=== PATIENT | female | born 1980 | race Caucasian/White ===

== ENCOUNTER 2016-05-13 11:45 | Emergency (ER) | payer OTHER ==
[2016-05-13] MEDS ORDERED: ONDANSETRON DISINTEGRATING 4 MG TAB ONE (11:58)
[2016-05-13] MEDS ORDERED: ONDANSETRON DISINTEGRATING 4 MG TAB PO ONE (12:00)
[2016-05-13] MEDS ORDERED: ONDANSETRON 4 MG/2 ML VIAL IVP ONE (12:22)
[2016-05-13] MEDS ORDERED: HYDROmorphONE/DILAUDID 1 MG/ML SYR IVP ONE ×2 (12:22→14:36)
[2016-05-13 13:03] LABS: % IMMATURE GRANULYOCYTES 0.4 % (0.0-1.1); ABSOLUTE IMMATURE GRANULOCYTES 0.05 10^3/uL (0.00-0.10); ADD DIFF? NO; ADD MORPH? NO; ADD SCAN? NO; ATYPICAL LYMPHOCYTE FLAG 0 (0-99); FRAGMENT RBC FLAG 0 (0-99); HEMATOCRIT 39.9 % (38.0-47.0); HEMOGLOBIN 13.3 g/dL (12.6-16.3); LEFT SHIFT FLG 0 (0-99); LIPEMIA HEMOLYSIS FLAG 80 (0-99); MEAN CELL HEMOGLOBIN 29.6 pg (27.9-34.1); MEAN CELL HEMOGLOBIN CONCENTR. 33.3 g/dL (32.4-36.7); MEAN CELL VOLUME 88.9 fL (81.5-99.8); MEAN PLATELET VOLUME 10.3 fL (8.7-11.7); PLATELET CLUMPS FLAG 10 (0-99); PLATELET COUNT 298 10^3/uL (150-400); RED BLOOD CELL COUNT 4.49 10^6/uL (4.18-5.33); RED CELL DISTRIBUTION WIDTH 16.2 % (11.5-15.2)
[2016-05-13 13:20] LABS: ALANINE AMINOTRANSFERASE 23 IU/L (9-52); ALBUMIN 4.5 g/dL (3.5-5.0); ALKALINE PHOSPHATASE 95 IU/L (38-126); ANION GAP 14 mEq/L (8-16); ASPARTATE AMINOTRANSFERASE 24 IU/L (14-46); BILIRUBIN,TOTAL 0.8 mg/dL (0.1-1.4); BILIRUBIN-CONJUGATED 0.5 mg/dL (0.0-0.5); BILIRUBIN-UNCONJUGATED 0.3 mg/dL (0.0-1.1); CALCIUM 9.2 mg/dL (8.5-10.4); CARBON DIOXIDE 19 mEq/l (22-31); CHLORIDE 111 mEq/L (97-110); CREATININE 0.9 mg/dL (0.6-1.0); GLOMERULAR FILTRATION RATE > 60; GLUCOSE 132 mg/dL (70-100); SODIUM 144 mEq/L (134-144); TOTAL PROTEIN 8.1 g/dL (6.3-8.2)
--- NOTE | 2016-05-13 13:42 | EDPHY ---
H & P Smoking Status: Former smoker Time Seen by Provider: 05/13/16 12:15 HPI/ROS: CHIEF COMPLAINT: Vomiting, diarrhea, abdominal pain HISTORY OF PRESENT ILLNESS: 36-year-old female presents to the emergency department complaining of diffuse abdominal pain and multiple episodes of vomiting and diarrhea since early this morning. Patient states that she was a woken out of sleep at 6:00 a.m. with abdominal pain and began vomiting. She has vomited numerous times. No hematemesis. No blood in her stool. She has had watery diarrhea denies flank pain. Denies urinary symptoms. She is currently on her menstrual cycle and she denies . Denies reported trauma. No known ill contacts. No known food borne illness exposure. REVIEW OF SYSTEMS: Constitutional: No fever, no chills. Eyes: No double or blurry vision. ENT: No sore throat. Respiratory: No cough, no shortness of breath. Cardiac: No chest pain. Gastrointestinal: As above Genitourinary: No dysuria. Musculoskeletal: No neck or back pain. Skin: No rashes. Neurological: No headache. (Brissa Gilmore) Past Medical/Surgical History: GERD, migraine headache, cholecystectomy (Brissa Gilmore) Social History: and lives in [place] (Brissa Gilmore) Physical Exam: General Appearance: Alert, moderate distress. Moaning. 132/93, temperature 36.7 Eyes: Pupils equal and round. Extraocular motions are all intact. ENT: Mouth: Mucous membranes moist. Respiratory: No wheezing, rhonchi, or rales, lungs are clear to auscultation. Cardiovascular: Regular rate and rhythm. Gastrointestinal: Abdomen is soft. She has diffuse tenderness with palpation in the abdomen. There is no masses, rebound or guarding noted. No CVA tenderness bilaterally. Neurological: Alert and oriented x 3, cranial nerves II through XII grossly intact Skin: Warm and dry, no rashes. Musculoskeletal: Nontender to palpate along the cervical, thoracic or lumbar spine. Neck is supple. Extremities: Full range of motion and no peripheral edema. Psychiatric: Patient is oriented X 3, there is no agitation. (Brissa Gilmore) Constitutional: Initial Vital Signs Temperature (C) 36.7 C 05/13/16 11:53 Heart Rate 74 05/13/16 11:53 Respiratory Rate 22 H 05/13/16 11:53 Blood Pressure 132/93 H 05/13/16 11:53 O2 Sat (%) 96 05/13/16 11:53 O2 Delivery Mode Room Air O2 (L/minute) 2 Allergies/Adverse Reactions: penicillin V potassium [From Pen-Vee K] Allergy (Intermediate, Verified 11:56) Hives Sulfa (Sulfonamide Antibiotics) Allergy (Intermediate, Verified 05/13/16 11:56) Hives Home Medications: Medication Instructions Recorded Hydrocodone Bit/Acetaminophen 1 - 2 tab PO Q6PRN PRN #20 tab 04/25/12 [Vicodin 5/500] Levothyroxine [Synthroid 125 mcg 125 mcg PO DAILY06 04/25/12 (RX)] Ranitidine HCl [Zantac 150mg/10ml 150 mg PO BID 04/25/12 oral liquid (RX)] Sertraline HCl [Zoloft] 150 mg PO DAILY 04/25/12 Promethazine HCl [Phenergan 12.5mg 12.5 mg PO Q8 PRN #5 tablet 05/13/16 tab] Medical Decision Making - Diagnostics Imaging: CT imaging of the abdomen and pelvis reveals normal appendix. There are some small fluid-filled loops of bowel consistent with enteritis. No evidence of obstruction. This was reported to me by Dr. Dexter Ovalle. (Brissa Gilmore) ED Course/Re-evaluation: 36-year-old female presents to the emergency department by private vehicle with multiple episodes of vomiting and diarrhea and diffuse abdominal pain. Patient had elevated white blood cell count of 11.9. Chemistries were within normal limits. HCG was negative. I discussed the pros and cons of CT imaging of her abdomen and pelvis including radiation exposure and the patient agrees with CT scan. IV established and the patient was given IV Dilaudid and Zofran. She was also given 12.5 mg of Phenergan IV followed by an additional mg of IV Dilaudid. CT imaging of the abdomen pelvis revealed normal appendix. The patient is drinking water currently. Her nausea is much better. Her pain is improving. She feels comfortable being discharged home. (Brissa Gilmore) I did not see this patient while she was in the emergency department. However her care was discussed with the PA while the patient was in the department. I agree with treatment plan and management (Gautam Johnson) Differential Diagnosis: Including but not limited to gastroenteritis, acute appendicitis, bowel obstruction, urinary tract infection, pyelonephritis (Brissa Gilmore) - Data Points Laboratory Results: Laboratory Results 05/13/16 12:06 05/13/16 12:06 Medications Given: Discontinued Medications Hydromorphone HCl (Dilaudid) 1 mg IVP EDNOW ONE Stop: 05/13/16 12:23 Last Admin: 05/13/16 12:55 Dose: 1 mg Hydromorphone HCl (Dilaudid) 1 mg IVP EDNOW ONE Stop: 05/13/16 14:37 Last Admin: 05/13/16 14:42 Dose: 1 mg Ondansetron HCl (Zofran Odt) 4 mg PO EDNOW ONE Stop: 05/13/16 12:01 Last Admin: 05/13/16 12:01 Dose: 4 mg Ondansetron HCl (Zofran) 4 mg IVP EDNOW ONE Stop: 05/13/16 12:23 Last Admin: 05/13/16 12:55 Dose: 4 mg Promethazine HCl (Phenergan) 12.5 mg IVP ONCE ONE Stop: 05/13/16 14:07 Last Admin: 05/13/16 14:09 Dose: 12.5 mg Departure - Departure Disposition: Home, Routine, Self-Care Clinical Impression: Acute gastroenteritis Condition: Good Instructions: Gastroenteritis (ED) Additional Instructions: Clear liquids and then slowly advance diet as tolerated. Phenergan for nausea as directed. Referrals: JOCELYN KRAUS [Other] - 1-2 days without fail Prescriptions: Promethazine HCl [Phenergan 12.5mg tab] 12.5 mg PO Q8 PRN #5 tablet PRN Reason: Nausea/Vomiting, Use 1st
[2016-05-13] MEDS ORDERED: IOPAMIDOL (ISOVUE-300) 100 ML BTL IV ONE (13:49)
[2016-05-13] MEDS ORDERED: PROMETHAZINE HCL 25 MG/ML INJ ONE (14:02)
[2016-05-13] MEDS ORDERED: PROMETHAZINE HCL 25 MG/ML INJ IVP ONE (14:06)
[2016-05-13 14:56] VITALS: O2SAT 93
[2016-05-13 16:57] VITALS: BP 117/72; PULSE 84; RESP 16; TEMP 98.2
== END 2016-05-13 16:57 | disposition home or self-care (01) ==
DX: K52.9 Noninfective gastroenteritis and colitis, unspecified (principal); Z87.891 Personal history of nicotine dependence
CPT/HCPCS: 96374; J1170; J2405; J2550; Q9967

== ENCOUNTER 2016-05-15 08:00 | Observation (INO) | payer OTHER ==
--- NOTE | 2016-05-15 08:22 | EDPHY ---
H & P Stated Complaint: here saturday for same- abd pain n/v Time Seen by Provider: 05/15/16 08:22 HPI/ROS: CHIEF COMPLAINT: Ongoing abdominal pain, nausea, vomiting and diarrhea HISTORY OF PRESENT ILLNESS: The patient presents to the ED with complaints of ongoing severe upper abdominal pain, nausea, vomiting and diarrhea. The patient was seen in the emergency department 2 days ago. The evaluation at that point time demonstrated a slight leukocytosis however a fairly unremarkable abdominal CT was performed. The patient does have a history of cholecystectomy. The patient also has a history of chronic intermittent migraines. The patient states that she was discharged home with a prescription for Phenergan which is not been helpful in managing her symptoms. The patient continues to complain of ongoing symptoms. The patient denies any fever, melena or hematemesis. REVIEW OF SYSTEMS: A comprehensive 10 point review of systems is otherwise negative aside from elements mentioned in the history of present illness. Source: Patient Exam Limitations: No limitations - Personal History LMP (Females 10-55): Now Current Tetanus/Diphtheria Vaccine: Yes Current Tetanus Diphtheria and Acellular Pertussis (TDAP): Yes - Medical/Surgical History Hx Asthma: No Hx Chronic Respiratory Disease: No Hx Diabetes: No Hx Cardiac Disease: No Hx Renal Disease: No Hx Cirrhosis: No Hx Alcoholism: No Hx HIV/AIDS: No Hx Splenectomy or Spleen Trauma: No Other PMH: pmh- GERD, hypothyroid, migraines. psh- back x2, soumya - Social History Smoking Status: Former smoker - Physical Exam Exam: General Appearance: Alert, moderate discomfort, anxious Eyes: Pupils equal and round no pallor or injection ENT, Mouth: Mucous membranes moist Respiratory: There are no retractions, lungs are clear to auscultation Cardiovascular: Regular rate and rhythm Gastrointestinal: Mild diffuse tenderness throughout, normal bowel sounds Neurological: A&O, normal motor function, normal sensory exam, normal cranial nerves Skin: Warm and dry, no rashes Musculoskeletal: Neck is supple nontender Extremities: symmetrical, full range of motion Constitutional: Initial Vital Signs Temperature (C) 36.6 C 05/15/16 08:01 Heart Rate 77 05/15/16 08:01 Respiratory Rate 20 05/15/16 08:01 Blood Pressure 148/96 H 05/15/16 08:01 O2 Sat (%) 95 05/15/16 08:01 O2 Delivery Mode Room Air Allergies/Adverse Reactions: penicillin V potassium [From Pen-[place] K] Allergy (Intermediate, Verified 11:56) Hives Sulfa (Sulfonamide Antibiotics) Allergy (Intermediate, Verified 05/13/16 11:56) Hives Home Medications: Medication Instructions Recorded Hydrocodone Bit/Acetaminophen 1 - 2 tab PO Q6PRN PRN #20 tab 04/25/12 [Vicodin 5/500] Levothyroxine [Synthroid 125 mcg 125 mcg PO DAILY06 04/25/12 (RX)] Ranitidine HCl [Zantac 150mg/10ml 150 mg PO BID 04/25/12 oral liquid (RX)] Sertraline HCl [Zoloft] 150 mg PO DAILY 04/25/12 Promethazine HCl [Phenergan 12.5mg 12.5 mg PO Q8 PRN #5 tablet 05/13/16 tab] Medical Decision Making ED Course/Re-evaluation: I reviewed the patient's past medical record including the laboratory testing and results of the CT scan performed 2 days ago. The patient had an IV established. She received IV Ativan and Zofran. She received 2 L of normal saline. Patient continued to have ongoing generalized abdominal pain and nausea. She received IV narcotics. Patient was re-evaluated again by myself at 12:00 p.m.. She continues to complain of ongoing abdominal pain and nausea. She is unable to tolerate even small sips of fluid. At this point time she has no tenderness to palpation in her right lower quadrant. She has a prior history of cholecystectomy. She is having diarrhea and nothing to suggest an obstruction. The patient will be admitted to the hospitalist service in the setting of her ongoing pain, nausea and inability to tolerate p.o. fluids. Consultation was made with Dr. Doni Howell who will admit the patient. Differential Diagnosis: Differential diagnosis considered includes gastroenteritis, perforation, obstruction, pancreatitis, choledocholithiasis - Data Points Laboratory Results: Laboratory Results 05/15/16 08:35 05/15/16 08:35 05/15/16 05/15/16 05/15/16 08:35 08:35 08:35 WBC 12.34 10^3/uL H 10^3/uL (3.80-9.50) RBC 4.90 10^6/uL 10^6/uL (4.18-5.33) Hgb 14.3 g/dL g/dL (12.6-16.3) Hct 43.8 % % (38.0-47.0) MCV 89.4 fL fL (81.5-99.8) MCH 29.2 pg pg (27.9-34.1) MCHC 32.6 g/dL g/dL (32.4-36.7) RDW 16.8 % H % (11.5-15.2) Plt Count 323 10^3/uL 10^3/uL (150-400) MPV 10.1 fL fL (8.7-11.7) Neut % (Auto) 75.9 % H % (39.3-74.2) Lymph % (Auto) 16.9 % % (15.0-45.0) Frederick % (Auto) 4.8 % % (4.5-13.0) Eos % (Auto) 1.3 % % (0.6-7.6) Baso % (Auto) 0.6 % % (0.3-1.7) Nucleat RBC Rel Count 0.0 % % (0.0-0.2) Absolute Neuts (auto) 9.37 10^3/uL H 10^3/uL (1.70-6.50) Absolute Lymphs (auto) 2.09 10^3/uL 10^3/uL (1.00-3.00) Absolute Monos (auto) 0.59 10^3/uL 10^3/uL (0.30-0.80) Absolute Eos (auto) 0.16 10^3/uL 10^3/uL (0.03-0.40) Absolute Basos (auto) 0.07 10^3/uL 10^3/uL (0.02-0.10) Absolute Nucleated RBC 0.00 10^3/uL 10^3/uL (0-0.01) Immature Gran % 0.5 % % (0.0-1.1) Immature Gran # 0.06 10^3/uL 10^3/uL (0.00-0.10) Sodium 145 mEq/L H mEq/L (134-144) Potassium 4.5 mEq/L mEq/L (3.5-5.2) Chloride 114 mEq/L H mEq/L (97-110) Carbon Dioxide 17 mEq/l L mEq/l (22-31) Anion Gap 14 mEq/L mEq/L (8-16) BUN 12 mg/dL mg/dL (7-23) Creatinine 1.1 mg/dL H mg/dL (0.6-1.0) Estimated GFR 56 Glucose 101 mg/dL H mg/dL (70-100) Calcium 9.1 mg/dL mg/dL (8.5-10.4) Total Bilirubin 0.7 mg/dL mg/dL (0.1-1.4) Conjugated Bilirubin 0.4 mg/dL mg/dL (0.0-0.5) Unconjugated Bilirubin 0.3 mg/dL mg/dL (0.0-1.1) AST 26 IU/L IU/L (14-46) ALT 22 IU/L IU/L (9-52) Alkaline Phosphatase 101 IU/L IU/L (38-126) Total Protein 8.5 g/dL H g/dL (6.3-8.2) Albumin 4.6 g/dL g/dL (3.5-5.0) Lipase 70.0 IU/L IU/L (23-300) Beta HCG, Qual NEGATIVE Medications Given: Discontinued Medications Hydromorphone HCl (Dilaudid) 1 mg IVP EDNOW ONE Stop: 05/15/16 09:32 Last Admin: 05/15/16 09:32 Dose: 1 mg Sodium Chloride (Ns) 1,000 mls @ 0 mls/hr IV ONCE ONE PRN Reason: Wide Open Stop: 05/15/16 08:30 Last Admin: 05/15/16 08:30 Dose: 1,000 mls Sodium Chloride (Ns) 1,000 mls @ 0 mls/hr IV ONCE ONE PRN Reason: Wide Open Stop: 05/15/16 08:30 Last Admin: 05/15/16 10:00 Dose: 1,000 mls Lorazepam (Ativan Injection) 1 mg IVP EDNOW ONE Stop: 05/15/16 08:30 Last Admin: 05/15/16 09:03 Dose: 1 mg Ondansetron HCl (Zofran) 4 mg IVP EDNOW ONE Stop: 05/15/16 08:30 Last Admin: 05/15/16 08:35 Dose: 4 mg Departure - Departure Disposition: [facility] Inpatient Acute Clinical Impression: Abdominal pain, Dehydration, Acute gastroenteritis Condition: Fair
[2016-05-15] MEDS ORDERED: NS 1,000 ML IV ONE ×2 (08:29)
[2016-05-15] MEDS ORDERED: ONDANSETRON 4 MG/2 ML VIAL IVP ONE (08:29)
[2016-05-15] MEDS ORDERED: LORazepam 2 MG/ML INJ IVP ONE (08:29)
[2016-05-15 08:45] LABS: % IMMATURE GRANULYOCYTES 0.5 % (0.0-1.1); ABSOLUTE IMMATURE GRANULOCYTES 0.06 10^3/uL (0.00-0.10); ADD DIFF? NO; ADD MORPH? NO; ADD SCAN? NO; ATYPICAL LYMPHOCYTE FLAG 0 (0-99); FRAGMENT RBC FLAG 0 (0-99); HEMATOCRIT 43.8 % (38.0-47.0); HEMOGLOBIN 14.3 g/dL (12.6-16.3); LEFT SHIFT FLG 0 (0-99); LIPEMIA HEMOLYSIS FLAG 80 (0-99); MEAN CELL HEMOGLOBIN 29.2 pg (27.9-34.1); MEAN CELL HEMOGLOBIN CONCENTR. 32.6 g/dL (32.4-36.7); MEAN CELL VOLUME 89.4 fL (81.5-99.8); MEAN PLATELET VOLUME 10.1 fL (8.7-11.7); PLATELET CLUMPS FLAG 0 (0-99); PLATELET COUNT 323 10^3/uL (150-400); RED CELL DISTRIBUTION WIDTH 16.8 % (11.5-15.2)
[2016-05-15] MEDS ORDERED: HYDROmorphONE/DILAUDID 1 MG/ML SYR ONE (09:25)
[2016-05-15] MEDS ORDERED: HYDROmorphONE/DILAUDID 1 MG/ML SYR IVP ONE (09:31)
[2016-05-15 09:45] LABS: ALANINE AMINOTRANSFERASE 22 IU/L (9-52); ALBUMIN 4.6 g/dL (3.5-5.0); ALKALINE PHOSPHATASE 101 IU/L (38-126); ANION GAP 14 mEq/L (8-16); ASPARTATE AMINOTRANSFERASE 26 IU/L (14-46); BILIRUBIN,TOTAL 0.7 mg/dL (0.1-1.4); BILIRUBIN-CONJUGATED 0.4 mg/dL (0.0-0.5); BILIRUBIN-UNCONJUGATED 0.3 mg/dL (0.0-1.1); CALCIUM 9.1 mg/dL (8.5-10.4); CARBON DIOXIDE 17 mEq/l (22-31); CHLORIDE 114 mEq/L (97-110); CREATININE 1.1 mg/dL (0.6-1.0); GLOMERULAR FILTRATION RATE 56; GLUCOSE 101 mg/dL (70-100); POTASSIUM 4.5 mEq/L (3.5-5.2); SODIUM 145 mEq/L (134-144); TOTAL PROTEIN 8.5 g/dL (6.3-8.2)
[2016-05-15] MEDS: PROMETHAZINE HCL 25 MG/ML INJ IVP PRN ×2 (13:52→19:51)
[2016-05-15] MEDS ORDERED: ONDANSETRON DISINTEGRATING 4 MG TAB PO PRN (15:51)
[2016-05-15] MEDS ORDERED: ONDANSETRON 4 MG/2 ML VIAL IVP PRN (15:51)
[2016-05-15] MEDS ORDERED: ACETAMINOPHEN 325 MG TAB PO PRN (15:51)
[2016-05-15] MEDS ORDERED: PROMETHAZINE HCL 12.5 MG PO PRN (15:52)
[2016-05-15] MEDS ORDERED: PROMETHAZINE HCL 25 MG TAB PO PRN (16:11)
[2016-05-15] MEDS: NS 1,000 ML IV SCH (16:19)
--- NOTE | 2016-05-15 16:24 | GHP ---
[f rep st] HISTORY AND PHYSICAL DATE OF ADMISSION: 05/15/2016 The patient is a 36-year-old female, with a history of migraines, and what sounds like possible abdo mary migraines, who presents with abdominal pain for a couple of days accompanied by nausea and vom iting. She has not had a fever, no one around her has been sick, she has no suspicious food ingesti on suggestive of food poisoning. She was seen in the emergency department 2 days ago, and at that t laureen she had an abdominal CAT scan performed that showed a normal appendix with no findings for a cli nical diagnosis of appendicitis, possible mild enteritis, otherwise felt to be grossly unremarkable. She describes these symptoms as similar to her previous episodes of what she thinks may be abdominal migraines, in that they occur in conjunction with her migraine headaches. She now gets prophylacti c therapy for migraines as well as some Botox injections, and the frequency of her headaches have de creased. She has had no hematemesis, coffee-ground emesis, melena, or bright red blood per rectum. She has no family or personal history of inflammatory bowel disease. REVIEW OF SYSTEMS: A complete 10-point review of systems is conducted and negative, except as noted in HPI. PAST MEDICAL HISTORY: 1. Hypothyroidism. 2. Migraines. 3. Possible abdominal migraines. ALLERGIES: To penicillin and sulfa. HOME MEDICATIONS: Zanaflex, Topamax, Prozac, Zantac, Phenergan, Synthroid. SOCIAL HISTORY: No tobacco, no alcohol, lives in [place], works at a desk job. FAMILY HISTORY: Negative for inflammatory bowel disease. PHYSICAL EXAMINATION: VITAL SIGNS: Temperature 37, blood pressure 115/83, pulse 70, breathing 20 t imes a minute, 95% on room air. GENERAL: Uncomfortable, but otherwise in no acute distress. HEENT : Sclerae anicteric, oropharynx clear, mucous membranes moist. NECK: Supple, without lymphadenopa thy, JVD. LUNGS: Clear to auscultation bilaterally. HEART: S1, S2 without murmurs. ABDOMEN: So ft, nontender, nondistended. LOWER EXTREMITIES: Without edema. Calves nontender. SKIN: Without rash. NEUROLOGIC: Exam is nonfocal. LABORATORY DATA: Sodium 145, potassium 114, chloride 17 , BUN 12, creatinine 1.1. Anion gap is normal. Glucose 101, LFTs normal, lipase normal, beta HCG negative. White count is 12.3, he matocrit 44, platelets are 323,000. I discussed the case with Dr. Davonte Wright. I reviewed the CT im ages and interpreted the images myself from a previous hospital stay. ASSESSMENT AND PLAN: A 36-year-old female with viral gastroenteritis versus abdominal migraines. 1. Abdominal pain. I think this is secondary to cramping, although she describes it as more consta nt. We will treat this with IV pain medicines, IV antiemetics overnight, and reevaluate in the morn ing. We have a low risk for Clostridium difficile given her concomitant nausea and absence of leuko cytosis. 2. Hypothyroidism, continue her on levothyroxine. 3. Migraines, continue her Topamax. 4. Depression, continue her Prozac. 5. Disposition, observation status. 6. Prophylaxis. Patient is ambulatory, if she is in the hospital for longer than 24 hours then pos sibly pharmacologic prophylaxis as indicated. /[id number]/MODL
[2016-05-15] MEDS ORDERED: MAALOX/LIDO/HYOSC GI COCKTAIL 55 ML BOTTLE PO ONE (19:36)
[2016-05-15] MEDS ORDERED: oxyCODONE IR 5 MG TAB PO PRN (19:36)
[2016-05-15] MEDS ORDERED: TOPIRAMATE 100 MG PO SCH (21:00)
[2016-05-15] MEDS ORDERED: FLUoxetine 20 MG CAP PO SCH (21:00)
[2016-05-15] MEDS ORDERED: RANITIDINE HCL 150 MG/10 ML UDCUP PO SCH (21:00)
[2016-05-15] MEDS: FAMOTIDINE 20 MG TAB PO SCH (21:18)
[2016-05-15] MEDS: TOPIRAMATE 100 MG TAB PO SCH (21:18)
[2016-05-15 22:05] VITALS: TEMP 98.2
[2016-05-16] MEDS: NS 1,000 ML IV SCH ×2 (00:56→07:32)
[2016-05-16] MEDS ORDERED: LEVOTHYROXINE 200 MCG TAB PO SCH (06:00)
[2016-05-16] MEDS: FAMOTIDINE 20 MG TAB PO SCH (07:22)
[2016-05-16] MEDS: TOPIRAMATE 100 MG TAB PO SCH (07:23)
[2016-05-16 07:25] VITALS: BP 118/78; PULSE 64; RESP 16
[2016-05-16 07:41] VITALS: O2SAT 94
--- NOTE | 2016-05-16 13:22 | HOSPPROG ---
Hospitalist Progress Note Assessment/Plan: 36 yo F w likely abdominal migraine now improved home today see dc summary Subjective: better Objective: Vital Signs Temp Pulse Resp BP Pulse Ox 36.8 C 64 16 118/78 94 05/16/16 07:36 05/16/16 07:36 05/16/16 07:36 05/16/16 07:36 05/16/16 07:36 05/15/16 05/16/16 05/17/16 05:59 05:59 05:59 Intake Total 4321 Balance 4321 - Physical Exam Constitutional: no apparent distress Eyes: PERRL, anicteric sclera Ears, Nose, Mouth, Throat: moist mucous membranes, hearing normal Cardiovascular: regular rate and rhythym, no murmur, rub, or gallop Respiratory: no respiratory distress, no rales or rhonchi Gastrointestinal: normoactive bowel sounds, soft, non-tender abdomen Genitourinary: No bernardo in urethra Skin: warm, normal color Musculoskeletal: full muscle strength, no muscle tenderness Neurologic: AAOx3, sensation intact bilaterally, weakness Psychiatric: interacting appropriately Lymph, Heme, Immunologic: no cervical LAD ICD10 Worksheet Patient Problems: Problems Problem Status Onset Abdominal pain Acute Acute gastroenteritis Acute Dehydration Acute
--- NOTE | 2016-05-16 14:07 | GDS ---
HISTORY OF PRESENT ILLNESS: The patient is a pleasant 36-year-old female with a history of migraine s and suspected abdominal migraines, who has presented to the ER 2 times in the last couple of days with abdominal pain. HOSPITAL COURSE: She had a CAT scan and a negative HCG on . The CAT scan was unremarkable, inc luding no evidence of appendicitis. She had nausea, vomiting, diarrhea. No fever, no chills. No e vidence of gastrointestinal bleeding including a stable hematocrit. She did have an anion gap metab olic acidosis that was stable. She was given conservative therapy with IV antiemetics and pain medicines. On the day of the , the patient was sitting up, eating, feeling better and anxious for discharge. DISPOSITION: She was therefore discharged home with no prescriptions end dictation. /[id number]/MODL
== END 2016-05-16 14:30 | disposition home or self-care (01) ==
LOC: F1N 12:32
PROVIDERS: ADMIT Internal Medicine; ATTEND Internal Medicine
DX: R10.10 Upper abdominal pain, unspecified (principal); R11.2 Nausea with vomiting, unspecified; R19.7 Diarrhea, unspecified; E86.0 Dehydration; G43.909 Migraine, unspecified, not intractable, without status migrainosus; E03.9 Hypothyroidism, unspecified; F32.9 Major depressive disorder, single episode, unspecified
CPT/HCPCS: 96361; 96374; 96375; 99285; G0378; J1170; J2405; J2550

== ENCOUNTER 2016-09-17 11:14 | Emergency (ER) | payer OTHER ==
--- NOTE | 2016-09-17 11:23 | EDPHY ---
H & P Stated Complaint: Abdominal pain, nausea and vomiting since 5AM. Time Seen by Provider: 09/17/16 11:22 - Personal History LMP (Females 10-55): 1-7 Days Ago Current Tetanus Diphtheria and Acellular Pertussis (TDAP): Yes - Medical/Surgical History Hx Asthma: No Hx Chronic Respiratory Disease: No Hx Diabetes: No Hx Cardiac Disease: No Hx Renal Disease: No Hx Cirrhosis: No Hx Alcoholism: No Hx HIV/AIDS: No Hx Splenectomy or Spleen Trauma: No Other PMH: pmh- GERD, hypothyroid, migraines. psh- back x2, soumya - Social History Smoking Status: Former smoker Constitutional: Initial Vital Signs Temperature (C) 36.9 C 09/17/16 11:15 Heart Rate 77 09/17/16 11:15 Respiratory Rate 20 09/17/16 11:15 Blood Pressure 154/98 H 09/17/16 11:15 O2 Sat (%) 96 09/17/16 11:15 O2 Delivery Mode Room Air Allergies/Adverse Reactions: penicillin V potassium [From Pen-Vee K] Allergy (Intermediate, Verified 11:56) Hives Sulfa (Sulfonamide Antibiotics) Allergy (Intermediate, Verified 05/13/16 11:56) Hives Home Medications: Medication Instructions Recorded Ranitidine HCl [Zantac] 150 mg PO BID 04/25/12 Promethazine HCl [Phenergan 12.5mg 12.5 mg PO Q8 PRN #5 tablet 05/13/16 tab] FLUoxetine [Prozac 20 MG (*)] 40 mg PO HS 05/15/16 Levothyroxine [Synthroid 200 mcg 200 mcg PO DAILY06 05/15/16 (*)] Topiramate [Topamax] 100 mg PO BID 05/15/16 Medical Decision Making ED Course/Re-evaluation: CHIEF COMPLAINT: Abdominal migraine, vomiting HISTORY OF PRESENT ILLNESS: The patient is a 36 y/o female complaining of severe recurrent vomiting and abdominal pain onset this morning. She has had the same symptoms previously with extensive workups and her specialist has been treating her for abdominal migraines. Her last severe episode was in May and required ED treatment. Usually Phenergan, Dilaudid, and IV fluids alleviate her symptoms. She denies fever, diarrhea, or other infectious symptoms. She denies other pertinent medical history. REVIEW OF SYSTEMS: A 10 point review of systems was performed and is negative with the exception of the elements mentioned in the history of present illness. PHYSICAL EXAM: HR, BP, O2 Sat, RR. Temp noted General Appearance: Alert, well hydrated, appropriate, and uncomfortable- appearing, actively retching. Head: Atraumatic without scalp tenderness or obvious injury Eyes: Pupils equal, round, reactive to light and accommodation, EOMI, no trauma , no injection. Nose: Atraumatic, no rhinorrhea, clear. Throat: Mucus membranes moist. Neck: Supple, nontender, no lymphadenopathy. Respiratory: No retractions, no distress, no wheezes, and no accessory muscle use. Lungs are clear to auscultation bilaterally. Cardiovascular: Regular rate and rhythm, no murmurs, rubs, or gallops. Good capillary refill all extremities. Gastrointestinal: Abdomen is soft, diffusely tender, non-distended, no masses, no rebound, no guarding, no peritoneal signs. Musculoskeletal: Normal active ROM of all extremities, atraumatic. Neurological: Alert, appropriate, and interactive. Nonfocal neuro exam Skin: No rashes, good turgor, no nodules on palpation. Past medical history: Abdominal migraines, obesity Past surgical history: denies Family history: noncontributory Social history: Lives in [place]. DIFFERENTIAL DIAGNOSIS: The differential diagnosis for the patient's abdominal pain and vomiting included but was not limited to abdominal migraine, ovarian cyst, pelvic inflammatory disease, ovarian torsion, urinary tract infection, ectopic , cholecystitis, and appendicitis. MEDICAL DECISION MAKING: This is a 36 y/o female with a history of abdominal migraines who presents with a few-hour history of diffuse abdominal pain and vomiting that is exactly the same as previous abdominal migraines. She has had extensive workups for this, so we will not re-image her today. Plan for symptomatic treatment only with IV, 30mg IV Toradol, 10mg IV Ketamine, 1mg IV Dilaudid, 25mg IV Phenergan, and 2L IV NS. Reassessed patient. She feels improved and ready to go home. She is tolerating PO fluids. She will be discharged with standard vomiting and abdominal pain return precautions and recommendation to follow up with her specialist. She is comfortable with this plan. - Data Points Medications Given: Discontinued Medications Hydromorphone HCl (Dilaudid) 1 mg IVP EDNOW ONE Stop: 09/17/16 11:48 Last Admin: 09/17/16 12:12 Dose: 1 mg Sodium Chloride (Ns) 1,000 mls @ 0 mls/hr IV ONCE ONE; Wide Open PRN Reason: Protocol Stop: 09/17/16 11:49 Last Admin: 09/17/16 12:13 Dose: 1,000 mls Sodium Chloride (Ns) 1,000 mls @ 0 mls/hr IV ONCE ONE; Wide Open PRN Reason: Protocol Stop: 09/17/16 11:49 Last Admin: 09/17/16 12:13 Dose: 1,000 mls Ketamine HCl (Ketamine) 10 mg IVP EDNOW ONE Stop: 09/17/16 11:48 Last Admin: 09/17/16 12:13 Dose: 10 mg Ketorolac Tromethamine (Toradol) 30 mg IVP EDNOW ONE Stop: 09/17/16 11:48 Last Admin: 09/17/16 12:13 Dose: 30 mg Promethazine HCl (Phenergan) 25 mg IVP EDNOW ONE Stop: 09/17/16 11:48 Last Admin: 09/17/16 12:13 Dose: 25 mg Departure - Departure Disposition: Home, Routine, Self-Care Clinical Impression: Abdominal migraine Qualifiers: Intractability: not intractable Qualified Code(s): G43.D0 - Abdominal migraine , not intractable Condition: Good Instructions: Chronic Abdominal Pain (ED) Additional Instructions: Follow up with your migraine specialist for ongoing symptoms. Referrals: Blanca Santos DO [Primary Care Provider] - As per Instructions Report Scribed for: Estuardo Guaman Report Scribed by: Komal Abel Date of Report: 09/17/16 Time of Report: 12:48
[2016-09-17] MEDS ORDERED: HYDROmorphONE/DILAUDID 1 MG/ML SYR IVP ONE (11:47)
[2016-09-17] MEDS ORDERED: KETAMINE 100 MG/10 ML SYR IVP ONE (11:47)
[2016-09-17] MEDS ORDERED: KETOROLAC 30 MG/1 ML SDV IVP ONE (11:47)
[2016-09-17] MEDS ORDERED: PROMETHAZINE HCL 25 MG/ML INJ IVP ONE (11:47)
[2016-09-17] MEDS ORDERED: NS 1,000 ML IV ONE ×2 (11:48)
[2016-09-17 13:48] VITALS: RESP 18
[2016-09-17 14:17] VITALS: BP 109/60; PULSE 65; TEMP 98.4; O2SAT 95
== END 2016-09-17 14:34 | disposition home or self-care (01) ==
DX: G43.D0 Abdominal migraine, not intractable (principal); E86.9 Volume depletion, unspecified; Z87.891 Personal history of nicotine dependence
CPT/HCPCS: 96374; J1170; J1885; J2550

== ENCOUNTER 2016-09-19 20:09 | Emergency (ER) | payer OTHER ==
[2016-09-19] MEDS ORDERED: METOCLOPRAMIDE 10 MG/2 ML VIAL IVP ONE (20:39)
[2016-09-19] MEDS ORDERED: KETOROLAC 30 MG/1 ML SDV IVP ONE (20:39)
[2016-09-19] MEDS ORDERED: KETAMINE 100 MG/10 ML SYR IVP ONE (20:39)
--- NOTE | 2016-09-19 20:39 | EDPHY ---
H & P Stated Complaint: abd pain Time Seen by Provider: 09/19/16 20:21 HPI/ROS: CHIEF COMPLAINT: Abdominal pain since this morning HISTORY OF PRESENT ILLNESS: 36-year-old female history of abdominal migraines seen emergency department for similar in the past most recently 2 days ago for same complaint which point she was given multiple medications including ketamine resulting in relief of symptoms. States that she woke this morning with return of her pain including nausea, vomiting. Bowel movements normal. Feels like her usual abdominal migraine symptoms. Denies: Trauma, urinary abnormality, back or flank pain PRIMARY CARE PROVIDER: REVIEW OF SYSTEMS: A ten point review of systems was performed and is negative with the exception of the items mentioned in the HPI PAST MEDICAL & SURGICAL HISTORY: Abdominal migraine SOCIAL HISTORY: Nonsmoker PHYSICAL EXAM (Prior to examination, patient consented to physical exam, hands were washed and my usual and customary physical exam procedures followed) 1) GENERAL: Well-developed, well-nourished, alert and oriented. Appears uncomfortable 2) HEAD: Normocephalic, atraumatic 3) HEENT: Pupils equal, round, reactive to light bilaterally. Sclera anicteric. 4) NECK: Full range of motion, no meningeal signs. 5) LUNGS: Clear auscultation bilaterally, no wheezes, no rhonchi, no retractions. 6) HEART: Regular rate and rhythm, no murmur, no heave, no gallop. 7) ABDOMEN: guarding abdomen, diffusely tender to palpation with light touch in all quadrants. , 8) MUSCULOSKELETAL: Moving all extremities, no focal areas of tenderness, no obvious trauma. No peripheral edema or discoloration. 9) BACK: No CVA tenderness 10) SKIN: No rash, no petechiae. 11) Psychiatric: Patient is oriented X 3, there is no agitation. DIFFERENTIAL DIAGNOSIS: My differential diagnosis includes, but is not limited to, acute appendicitis, acute cholecystitis, bowel obstruction, acute pancreatitis, ovarian torsion, ectopic , abdominal migraine exacerbation, gastritis and urinary tract infection. The patient understands that this diagnosis is provisional and can never be 100% accurate. This is a partial list of diagnoses considered. These considerations are based on history , physical exam, past history and reassessment. Source: Police - Personal History LMP (Females 10-55): 1-7 Days Ago Current Tetanus/Diphtheria Vaccine: No - Medical/Surgical History Hx Asthma: No Hx Chronic Respiratory Disease: No Hx Diabetes: No Hx Cardiac Disease: No Hx Renal Disease: No Hx Cirrhosis: No Hx Alcoholism: No Hx HIV/AIDS: No Hx Splenectomy or Spleen Trauma: No Other PMH: pmh- GERD, hypothyroid, migraines. psh- back x2, soumya - Social History Smoking Status: Former smoker Constitutional: Initial Vital Signs Temperature (C) 37.2 C 09/19/16 20:14 Heart Rate 76 09/19/16 20:14 Respiratory Rate 17 09/19/16 20:14 Blood Pressure 140/97 H 09/19/16 20:14 O2 Sat (%) 93 09/19/16 20:14 O2 Delivery Mode Room Air Allergies/Adverse Reactions: penicillin V potassium [From Pen-Vee K] Allergy (Intermediate, Verified 11:56) Hives Sulfa (Sulfonamide Antibiotics) Allergy (Intermediate, Verified 05/13/16 11:56) Hives Home Medications: Medication Instructions Recorded Ranitidine HCl [Zantac] 150 mg PO BID 04/25/12 Promethazine HCl [Phenergan 12.5mg 12.5 mg PO Q8 PRN #5 tablet 05/13/16 tab] FLUoxetine [Prozac 20 MG (*)] 40 mg PO HS 05/15/16 Levothyroxine [Synthroid 200 mcg 200 mcg PO DAILY06 05/15/16 (*)] Topiramate [Topamax] 100 mg PO BID 05/15/16 Medical Decision Making ED Course/Re-evaluation: 840 p.m.: Old medical records reviewed by myself. 11:13 p.m.: Re-evaluation after her Reglan, ketamine, Toradol. She is feeling improvement in symptoms. Currently asymptomatic. She would like to attempt oral fluid challenge. I re-examined her abdomen at this time which is soft no guarding no rebound. At this time I think that acute surgical abdominal pathology, acute appendicitis, bowel obstruction, mesenteric ischemia, acute cholecystitis, is less than likely in this patient. I do not think that imaging studies indicated at this time. If she is able to complete her oral fluid challenge she would like to be discharged. I think this is a reasonable decision. 11:30 p.m.: Patient has tolerate oral intake. She would like to be discharged home. Re-examined her abdomen which is soft no guarding no rebound. Asymptomatic. 11:45 p.m.: Called to the patient's bedside as she is complaining of new onset diffuse abdominal pain. Midnight: Care turned over to Dr. Rafa Smith at this time. Patient has been given further dose of analgesia will be observed for a period of time and if she is feeling improvement plan will be discharge. - Data Points Laboratory Results: Laboratory Results 09/19/16 21:50 09/19/16 21:50 Medications Given: Discontinued Medications Hydromorphone HCl (Dilaudid) 1 mg IVP EDNOW ONE Stop: 09/19/16 23:47 Last Admin: 09/19/16 23:51 Dose: 1 mg Sodium Chloride (Ns) 1,000 mls @ 0 mls/hr IV ONCE ONE PRN Reason: Wide Open Stop: 09/19/16 20:41 Last Admin: 09/19/16 21:35 Dose: 1,000 mls Ketamine HCl (Ketamine) 20 mg 0.2 mg/kg (20 mg) IVP EDNOW ONE Stop: 09/19/16 20:40 Last Admin: 09/19/16 21:35 Dose: 20 mg Ketorolac Tromethamine (Toradol) 30 mg IVP EDNOW ONE Stop: 09/19/16 20:40 Last Admin: 09/19/16 21:35 Dose: 30 mg Metoclopramide HCl (Reglan Injection) 10 mg IVP EDNOW ONE Stop: 09/19/16 20:40 Last Admin: 09/19/16 21:35 Dose: 10 mg Ondansetron HCl (Zofran) 4 mg IVP EDNOW ONE Stop: 09/19/16 23:47 Last Admin: 09/19/16 23:52 Dose: 4 mg Departure - Departure Disposition: Home, Routine, Self-Care Clinical Impression: History of abdominal migraine Abdominal pain Qualifiers: Abdominal location: generalized Qualified Code(s): R10.84 - Generalized abdominal pain Condition: Good Instructions: Acute Abdominal Pain (ED) Additional Instructions: Seek immediate medical attention if you develop new or worsening symptoms, if you develop fevers, chills, inability to tolerate oral intake or any other symptoms that concerns you. Referrals: Blanca Santos, DO [Primary Care Provider] - 1 day without fail Stand Alone Forms: Work Excuse
[2016-09-19] MEDS ORDERED: NS 1,000 ML IV ONE (20:40)
[2016-09-19 21:36] VITALS: O2SAT 100
[2016-09-19 21:57] LABS: % IMMATURE GRANULYOCYTES 0.5 % (0.0-1.1); ABSOLUTE IMMATURE GRANULOCYTES 0.08 10^3/uL (0.00-0.10); ADD DIFF? NO; ADD MORPH? NO; ADD SCAN? NO; ATYPICAL LYMPHOCYTE FLAG 0 (0-99); FRAGMENT RBC FLAG 0 (0-99); HEMATOCRIT 38.6 % (38.0-47.0); LEFT SHIFT FLG 0 (0-99); LIPEMIA HEMOLYSIS FLAG 80 (0-99); MEAN CELL HEMOGLOBIN 29.3 pg (27.9-34.1); MEAN CELL HEMOGLOBIN CONCENTR. 33.7 g/dL (32.4-36.7); MEAN CELL VOLUME 87.1 fL (81.5-99.8); MEAN PLATELET VOLUME 9.9 fL (8.7-11.7); PLATELET CLUMPS FLAG 0 (0-99); PLATELET COUNT 288 10^3/uL (150-400); RED BLOOD CELL COUNT 4.43 10^6/uL (4.18-5.33); RED CELL DISTRIBUTION WIDTH 14.3 % (11.5-15.2)
[2016-09-19 22:06] LABS: ALANINE AMINOTRANSFERASE 27 IU/L (9-52); ALKALINE PHOSPHATASE 99 IU/L (38-126); ANION GAP 12 mEq/L (8-16); ASPARTATE AMINOTRANSFERASE 16 IU/L (14-46); BILIRUBIN,TOTAL 0.7 mg/dL (0.1-1.4); BILIRUBIN-CONJUGATED 0.4 mg/dL (0.0-0.5); BILIRUBIN-UNCONJUGATED 0.3 mg/dL (0.0-1.1); CARBON DIOXIDE 17 mEq/l (22-31); CHLORIDE 110 mEq/L (97-110); GLOMERULAR FILTRATION RATE > 60; GLUCOSE 92 mg/dL (70-100); POTASSIUM 3.5 mEq/L (3.5-5.2); SODIUM 139 mEq/L (134-144); TOTAL PROTEIN 7.1 g/dL (6.3-8.2)
[2016-09-19 23:26] LABS: COLOR YELLOW; LEUKOCYTE ESTERASE,URINE 2+ (NEGATIVE); NITRITE,URINE NEGATIVE (NEGATIVE)
[2016-09-19 23:29] LABS: MUCUS TRACE /lpf (NONE-1+)
[2016-09-19] MEDS ORDERED: ONDANSETRON 4 MG/2 ML VIAL IVP ONE (23:46)
[2016-09-19] MEDS ORDERED: HYDROmorphONE/DILAUDID 1 MG/ML SYR IVP ONE (23:46)
[2016-09-19 23:52] VITALS: BP 132/80; PULSE 78; RESP 18
[2016-09-19 23:53] VITALS: TEMP 98.4
== END 2016-09-20 00:26 | disposition home or self-care (01) ==
DX: R10.84 Generalized abdominal pain (principal); Z86.69 Personal history of other diseases of the nervous system and sense organs; Z87.891 Personal history of nicotine dependence
CPT/HCPCS: 96365; J1170; J1885; J2405; J2765

== ENCOUNTER 2017-06-03 13:42 | Emergency (ER) | payer OTHER ==
--- NOTE | 2017-06-03 14:08 | EDPHY ---
H & P Time Seen by Provider: 06/03/17 14:05 HPI/ROS: Chief complaint. Influenza HPI. 37 old female diagnosed with influenza 3 days ago on May 31 and started on Tamiflu. She had been sick for 2 days prior to the diagnosis and starting the flu medication. She has had nausea vomiting for 3 days. She has difficulty keeping fluids down. She is coughing. She aches all over. No shortness of breath. No abdominal pain. Muscle aches. ROS Constitutional. Weakness and achy Eyes. no problems with vision ENT. Congestion Cardiovascular. no chest pain Respiratory. Cough Abdominal. no abdominal pain, no nausea/vomiting, no diarrhea . no problems urinating MS. no calf pain/swelling; myalgias Skin. no rash Lymph. no swollen glands Neuro. Headache Past Medical/Surgical History: Past medical history GERD, hypothyroid, migraines, cholecystectomy Social History: , nonsmoker, no alcohol Smoking Status: Former smoker Physical Exam: General Appearance: Alert well-developed female mild distress vital signs significant for elevated blood pressure 159/111 Eyes: Pupils equal and round no pallor or injection. ENT, Mouth: Mucous membranes are moist. Respiratory: There are no retractions, lungs are clear to auscultation. Cardiovascular: Regular rate and rhythm. Gastrointestinal: Abdomen is soft and nontender, no masses, bowel sounds normal. Neurological: Awake and alert, sensory and motor exams grossly normal. Skin: Warm and dry, no rashes. Musculoskeletal: Neck is supple nontender. Extremities symmetrical, full range of motion. Psychiatric: Patient is oriented X 3, there is no agitation. Constitutional: Initial Vital Signs Temperature (C) 36.4 C 06/03/17 13:45 Heart Rate 89 06/03/17 13:45 Respiratory Rate 24 H 06/03/17 13:45 Blood Pressure 159/111 H 06/03/17 13:45 O2 Sat (%) 96 06/03/17 13:45 O2 Delivery Mode Room Air Allergies/Adverse Reactions: penicillin V potassium [From Pen-Vee K] Allergy (Intermediate, Verified 11:56) Hives Sulfa (Sulfonamide Antibiotics) Allergy (Intermediate, Verified 05/13/16 11:56) Hives Home Medications: Medication Instructions Recorded Ranitidine HCl [Zantac] 150 mg PO BID 04/25/12 Promethazine HCl [Phenergan 12.5mg 12.5 mg PO Q8 PRN #5 tablet 05/13/16 tab] FLUoxetine [Prozac 20 MG (*)] 40 mg PO HS 05/15/16 Levothyroxine [Synthroid 200 mcg 200 mcg PO DAILY06 05/15/16 (*)] Topiramate [Topamax] 100 mg PO BID 05/15/16 Promethazine HCl [Phenergan 25mg 25 mg PO Q4-6PRN PRN #10 tab 06/03/17 (*)] Medical Decision Making - Diagnostics Imaging Results: Imaging Impressions Chest X-Ray 06/03/17 14:19 Impression: No pneumonia. Chest x-ray is normal Procedures: IV normal saline with initial target 2 L. Toradol IV. Zofran IV ED Course/Re-evaluation: Serial evaluations patient complains continuously of pain. She and I agreed 1 dose of pain medication and no further pain medication. She agrees that she will not tell me the pain medication did not work, is not sufficient, it is wearing off, she needs more, she needs a prescription for going home. She agrees to this and I agreed to give her 1 dose of pain medication. She is also aware that the pain medication will gradually wear off in she will be back to using Tylenol and ibuprofen. There has been no vomiting in the emergency department the patient has been observed putting her finger down her throat. Differential Diagnosis: Influenza with myalgias and achiness. Possible drug-seeking behavior - Data Points Laboratory Results: Laboratory Results 06/03/17 16:20 06/03/17 16:20 06/03/17 06/03/17 16:20 16:20 WBC 9.21 10^3/uL 10^3/uL (3.80-9.50) RBC 5.03 10^6/uL 10^6/uL (4.18-5.33) Hgb 14.8 g/dL g/dL (12.6-16.3) Hct 43.5 % % (38.0-47.0) MCV 86.5 fL fL (81.5-99.8) MCH 29.4 pg pg (27.9-34.1) MCHC 34.0 g/dL g/dL (32.4-36.7) RDW 14.9 % % (11.5-15.2) Plt Count 233 10^3/uL 10^3/uL (150-400) MPV 10.2 fL fL (8.7-11.7) Neut % (Auto) 77.2 % H % (39.3-74.2) Lymph % (Auto) 17.7 % % (15.0-45.0) [place] % (Auto) 4.5 % % (4.5-13.0) Eos % (Auto) 0.1 % L % (0.6-7.6) Baso % (Auto) 0.2 % L % (0.3-1.7) Nucleat RBC Rel Count 0.0 % % (0.0-0.2) Absolute Neuts (auto) 7.11 10^3/uL H 10^3/uL (1.70-6.50) Absolute Lymphs (auto) 1.63 10^3/uL 10^3/uL (1.00-3.00) Absolute Monos (auto) 0.41 10^3/uL 10^3/uL (0.30-0.80) Absolute Eos (auto) 0.01 10^3/uL L 10^3/uL (0.03-0.40) Absolute Basos (auto) 0.02 10^3/uL 10^3/uL (0.02-0.10) Absolute Nucleated RBC 0.00 10^3/uL 10^3/uL (0-0.01) Immature Gran % 0.3 % % (0.0-1.1) Immature Gran # 0.03 10^3/uL 10^3/uL (0.00-0.10) Sodium 143 mEq/L mEq/L (135-145) Potassium 3.6 mEq/L mEq/L (3.5-5.2) Chloride 110 mEq/L mEq/L (97-110) Carbon Dioxide 16 mEq/l L mEq/l (22-31) Anion Gap 17 mEq/L H mEq/L (8-16) BUN 18 mg/dL mg/dL (7-23) Creatinine 0.9 mg/dL mg/dL (0.6-1.0) Estimated GFR > 60 Glucose 94 mg/dL mg/dL (70-100) Calcium 8.4 mg/dL L mg/dL (8.5-10.4) Medications Given: Discontinued Medications Sodium Chloride (Ns) 1,000 mls @ 0 mls/hr IV ONCE ONE; Wide Open PRN Reason: Protocol Stop: 06/03/17 14:20 Last Admin: 06/03/17 14:38 Dose: 1,000 mls Sodium Chloride (Ns) 1,000 mls @ 0 mls/hr IV EDNOW ONE; Wide Open PRN Reason: Protocol Stop: 06/03/17 14:21 Last Admin: 06/03/17 14:38 Dose: 1,000 mls Ketorolac Tromethamine (Toradol) 30 mg IVP EDNOW ONE Stop: 06/03/17 14:21 Last Admin: 06/03/17 14:38 Dose: 30 mg Morphine Sulfate (Morphine) 6 mg IVP EDNOW ONE Stop: 06/03/17 15:47 Last Admin: 06/03/17 16:18 Dose: 6 mg Ondansetron HCl (Zofran) 4 mg IVP EDNOW ONE Stop: 06/03/17 14:21 Last Admin: 06/03/17 14:38 Dose: 4 mg Promethazine HCl (Phenergan) 12.5 mg PO ONCE ONE Stop: 06/03/17 15:04 Last Admin: 06/03/17 15:13 Dose: Not Given Promethazine HCl (Phenergan) 12.5 mg IVP ONCE ONE Stop: 06/03/17 15:11 Last Admin: 06/03/17 15:11 Dose: 12.5 mg Departure - Departure Disposition: Home, Routine, Self-Care Clinical Impression: Influenza Condition: Good Instructions: Influenza (ED) Additional Instructions: Continue Tamiflu as prescribed. Tylenol 1000 mg every 4-6 hours, ibuprofen 600 mg every 6 hr for discomfort. Return for worsening symptoms. Follow up with your regular physician tomorrow if not improved Phenergan every 4-6 hours for nausea and vomiting. Referrals: Blanca Santos, [Primary Care Provider] - 1 day, if not improved Prescriptions: Promethazine HCl [Phenergan 25mg (*)] 25 mg PO Q4-6PRN PRN #10 tab PRN Reason: Nausea/Vomiting, Use 1st
[2017-06-03] MEDS ORDERED: NS 1,000 ML IV ONE ×2 (14:19→14:20)
[2017-06-03] MEDS ORDERED: ONDANSETRON 4 MG/2 ML VIAL IVP ONE (14:20)
[2017-06-03] MEDS ORDERED: KETOROLAC 30 MG/1 ML SDV IVP ONE (14:20)
[2017-06-03] MEDS ORDERED: PROMETHAZINE HCL 25 MG TAB PO ONE (15:03)
[2017-06-03] MEDS ORDERED: PROMETHAZINE HCL 25 MG/ML INJ ONE (15:08)
[2017-06-03] MEDS ORDERED: PROMETHAZINE HCL 25 MG/ML INJ IVP ONE (15:10)
[2017-06-03 16:20] VITALS: BP 144/91; PULSE 65; RESP 18; TEMP 98.2; O2SAT 98
[2017-06-03 16:29] LABS: PLATELET COUNT 233 10^3/uL (150-400)
== END 2017-06-03 17:10 | disposition home or self-care (01) ==
DX: J11.1 Influenza due to unidentified influenza virus with other respiratory manifestations (principal); E86.9 Volume depletion, unspecified; Z87.891 Personal history of nicotine dependence
CPT/HCPCS: 96374; J1885; J2270; J2405; J2550

== ENCOUNTER → 2017-11-26 | Outpatient (CLI) | payer OTHER | LOC: FIMAGING 14:39 | PROVIDERS: ATTEND Internal Medicine | DX: N28.9 Disorder of kidney and ureter, unspecified (principal); N39.0 Urinary tract infection, site not specified; N17.9 Acute kidney failure, unspecified ==

== ENCOUNTER 2017-12-13 17:17 | Emergency (ER) | payer OTHER ==
[2017-12-13] MEDS ORDERED: ONDANSETRON 4 MG/2 ML VIAL ONE (17:55)
[2017-12-13] MEDS ORDERED: PROMETHAZINE HCL 25 MG/ML INJ IVP ONE (18:04)
[2017-12-13] MEDS ORDERED: NS 1,000 ML IV ONE ×2 (18:05→18:40)
[2017-12-13] MEDS ORDERED: FAMOTIDINE 20 MG/2 ML SDV IVP ONE (18:06)
[2017-12-13 18:32] LABS: PLATELET COUNT 366 10^3/uL (150-400)
[2017-12-13] MEDS ORDERED: fentaNYL 100 MCG/2 ML INJ IVP ONE ×4 (18:40→21:36)
[2017-12-13] MEDS ORDERED: PROMETHAZINE HCL 25 MG/ML INJ IVP PRN (20:30)
[2017-12-13] MEDS ORDERED: IOPAMIDOL (ISOVUE-300) 100 ML BTL ONE (20:46)
[2017-12-13] MEDS ORDERED: ONDANSETRON 4 MG/2 ML VIAL IVP ONE (21:22)
[2017-12-13] MEDS ORDERED: KETOROLAC 15 MG/1 ML SDV IVP ONE (21:22)
[2017-12-13] MEDS ORDERED: fentaNYL 100 MCG/2 ML INJ ONE (21:34)
--- NOTE | 2017-12-13 22:51 | EDPHY ---
H & P Smoking Status: Former smoker Time Seen by Provider: 12/13/17 17:46 HPI/ROS: CHIEF COMPLAINT: Abdominal pain HISTORY OF PRESENT ILLNESS: Patient is a 37-year-old female with history of migraines and abdominal migraines here chief complaint of nausea vomiting and diarrhea starting yesterday evening. She reports emesis has been mostly bilious and diarrhea has been nonbloody and not improvement. She has no recent use of antibiotics. She takes no blood thinners. She denies . He has no history of diverticulitis. She does state this feels similar to a prior abdominal migraines. She denies any fever or chills. REVIEW OF SYSTEMS: Constitutional: No fever, no chills. Eyes: No discharge. ENT: No sore throat. Cardiovascular: No chest pain, no palpitations. Respiratory: No cough, no shortness of breath. Gastrointestinal: + abdominal pain, no vomiting. Genitourinary: No hematuria. Musculoskeletal: No back pain. Skin: No rashes. Neurological: No headache. (Otis Rice) Physical Exam: General Appearance: Alert and no distress. Eyes: Pupils equal and round no injection. Respiratory: Chest is nontender, lungs are clear to auscultation. Cardiac: regular rate and rhythm. Gastrointestinal: Abdomen is soft and with mild diffuse tenders, no masses, bowel sounds normal. Musculoskeletal: Neck is supple . Extremities have full range of motion and are nontender. Skin: No rashes or lesions. (Otis Rice) Constitutional: Initial Vital Signs Temperature (C) 36.5 C 12/13/17 17:27 Heart Rate 85 12/13/17 17:27 Respiratory Rate 18 12/13/17 17:27 Blood Pressure 124/91 H 12/13/17 17:27 O2 Sat (%) 94 12/13/17 17:27 O2 Delivery Mode Room Air Allergies/Adverse Reactions: penicillin V potassium [From Pen-Vee K] Allergy (Intermediate, Verified 17:27) Hives Sulfa (Sulfonamide Antibiotics) Allergy (Intermediate, Verified 12/13/17 17:27) Hives Home Medications: Medication Instructions Recorded Ranitidine HCl [Zantac] 150 mg PO BID 04/25/12 Promethazine HCl [Phenergan 12.5mg 12.5 mg PO Q8 PRN #5 tablet 05/13/16 tab] FLUoxetine [Prozac 20 MG (*)] 40 mg PO HS 05/15/16 Levothyroxine [Synthroid 200 mcg 200 mcg PO DAILY06 05/15/16 (*)] Topiramate [Topamax] 100 mg PO BID 05/15/16 Promethazine HCl [Phenergan 25mg 25 mg PO Q4-6PRN PRN #10 tab 06/03/17 (*)] Hydrocodone/APAP 5/325 [[place] 1 tab PO Q6 #6 tab 12/13/17 5/325 (*)] Medical Decision Making ED Course/Re-evaluation: PHYSICIAN DOCUMENTATION: The patient was evaluated and managed by the Physician Auto [employer]icer. My co- signature indicates that I have reviewed this chart and I agree with the findings and plan of care as documented. I am the secondary supervising physician. (Anita Roa) 37-year-old female here with less than 24 hr of abdominal pain. Vital signs are all stable she has no fever. Labs reveal leukocytosis of [address] scan was obtained to rule intra-abdominal abscess, appendicitis or other worrisome intra-abdominal processes. CT scan shows no acute intra-abdominal process. Remainder of her labs are within normal limits including all total bilirubin and normal lipase. Eventually she does admit that this feels similar to prior abdominal migraines and she feels comfortable following up with her migraine specialist for further treatment. (Otis Rice) - Data Points Laboratory Results: Laboratory Results 12/13/17 18:10 12/13/17 18:10 Medications Given: Discontinued Medications Diphenhydramine HCl (Benadryl Injection) 12.5 mg IVP EDNOW ONE Stop: 12/13/17 22:52 Last Admin: 12/13/17 22:58 Dose: 12.5 mg Famotidine (Pepcid) 20 mg IVP EDNOW ONE Stop: 12/13/17 18:07 Last Admin: 12/13/17 18:31 Dose: 20 mg Fentanyl (Sublimaze) 50 mcg IVP EDNOW ONE Stop: 12/13/17 18:41 Last Admin: 12/13/17 19:13 Dose: 50 mcg Fentanyl (Sublimaze) 50 mcg IVP EDNOW ONE Stop: 12/13/17 19:05 Last Admin: 12/13/17 19:23 Dose: 50 mcg Fentanyl (Sublimaze) 50 mcg IVP EDNOW ONE Stop: 12/13/17 20:30 Last Admin: 12/13/17 20:39 Dose: 50 mcg Fentanyl (Sublimaze) 50 mcg IVP EDNOW ONE Stop: 12/13/17 21:37 Last Admin: 12/13/17 21:38 Dose: 50 mcg Sodium Chloride (Ns) 1,000 mls @ 0 mls/hr IV EDNOW ONE; Wide Open PRN Reason: Protocol Stop: 12/13/17 18:06 Last Admin: 12/13/17 18:31 Dose: 1,000 mls Sodium Chloride (Ns) 1,000 mls @ 0 mls/hr IV EDNOW ONE; Wide Open PRN Reason: Protocol Stop: 12/13/17 18:41 Last Admin: 12/13/17 19:23 Dose: 1,000 mls Ketorolac Tromethamine (Toradol) 15 mg IVP EDNOW ONE Stop: 12/13/17 21:23 Last Admin: 12/13/17 21:38 Dose: 15 mg Ondansetron HCl (Zofran) 4 mg IVP ONCE ONE Stop: 12/13/17 21:23 Last Admin: 12/13/17 21:38 Dose: 4 mg Promethazine HCl (Phenergan) 12.5 mg IVP ONCE ONE Stop: 12/13/17 18:05 Last Admin: 12/13/17 18:31 Dose: 12.5 mg Promethazine HCl (Phenergan) 12.5 mg IVP Q6HRS PRN PRN Reason: Nausea/Vomiting, Can't Take PO Stop: 06/11/18 20:29 Last Admin: 12/13/17 21:18 Dose: 12.5 mg Departure - Departure Disposition: Home, Routine, Self-Care Clinical Impression: Abdominal pain, Vomiting and diarrhea Condition: Good Instructions: Acute Abdominal Pain (ED) Additional Instructions: Follow-up with your specialist as soon as possible early next week. Return to the ER if he have worsening symptoms. Referrals: Blanca Santos, [Primary Care Provider] - As per Instructions Prescriptions: Hydrocodone/APAP 5/325 [[place] 5/325 (*)] 1 tab PO Q6 #6 tab
[2017-12-13 23:04] VITALS: BP 128/68
--- NOTE | 2017-12-15 17:32 | CPEKG ---
Test Reason : OPEN Blood Pressure : / mmHG Vent. Rate : 082 BPM Atrial Rate : 082 BPM P-R Int : 167 ms QRS Dur : 079 ms QT Int : 506 ms P-R-T Axes : 056 056 030 degrees QTc Int : 591 ms Sinus rhythm Borderline T abnormalities, anterior leads Prolonged QT interval Confirmed by Joanie Pollard ([id number]) on 12/15/2017 5:32:23 PM Referred By: Confirmed By:Joanie Pollard
== END 2017-12-13 23:02 | disposition home or self-care (01) ==
DX: R10.0 Acute abdomen (principal); R11.10 Vomiting, unspecified; R19.7 Diarrhea, unspecified; K44.9 Diaphragmatic hernia without obstruction or gangrene; E86.9 Volume depletion, unspecified; Z90.49 Acquired absence of other specified parts of digestive tract
CPT/HCPCS: 96374; J1200; J1885; J2405; J2550; J3010; Q9967

== ENCOUNTER 2018-05-05 15:07 | Emergency (ER) | payer OTHER ==
--- NOTE | 2018-05-05 15:28 | EDPHY ---
H & P Stated Complaint: abdominal pain n/v/d; hx of abdominal migraines Time Seen by Provider: 05/05/18 15:28 - Personal History LMP (Females 10-55): 1-7 Days Ago Current Tetanus/Diphtheria Vaccine: Yes Current Tetanus Diphtheria and Acellular Pertussis (TDAP): Yes - Medical/Surgical History Hx Asthma: No Hx Chronic Respiratory Disease: No Hx Diabetes: No Hx Cardiac Disease: No Hx Renal Disease: No Hx Cirrhosis: No Hx Alcoholism: No Hx HIV/AIDS: No Hx Splenectomy or Spleen Trauma: No Other PMH: pmh- GERD, hypothyroid, migraines. psh- back x2, soumya - Social History Smoking Status: Former smoker Constitutional: Initial Vital Signs Temperature (C) 36.4 C 05/05/18 15:09 Heart Rate 75 05/05/18 15:09 Respiratory Rate 16 05/05/18 15:09 Blood Pressure 149/92 H 05/05/18 15:09 O2 Sat (%) 98 05/05/18 15:09 O2 Delivery Mode Room Air Allergies/Adverse Reactions: penicillin V potassium [From Pen-Vee K] Allergy (Intermediate, Verified 17:27) Hives Sulfa (Sulfonamide Antibiotics) Allergy (Intermediate, Verified 12/13/17 17:27) Hives Home Medications: Medication Instructions Recorded Ranitidine HCl [Zantac] 150 mg PO BID 04/25/12 Promethazine HCl [Phenergan 12.5mg 12.5 mg PO Q8 PRN #5 tablet 05/13/16 tab] FLUoxetine [Prozac 20 MG (*)] 40 mg PO HS 05/15/16 Levothyroxine [Synthroid 200 mcg 200 mcg PO DAILY06 05/15/16 (*)] Topiramate [Topamax] 100 mg PO BID 05/15/16 Promethazine HCl [Phenergan 25mg 25 mg PO Q4-6PRN PRN #10 tab 06/03/17 (*)] Hydrocodone/APAP 5/325 [[place] 1 tab PO Q6 #6 tab 12/13/17 5/325 (*)] Medical Decision Making ED Course/Re-evaluation: CHIEF COMPLAINT: Abdominal pain HISTORY OF PRESENT ILLNESS: 38-year-old female with a history of abdominal migraines. She suffers from these to the point where she needs come to the emergency department every several months. This episode is not resolving. She says exactly same as her prior episodes. She denies any fevers and chills however she does endorse nausea vomiting and some intermittent loose stool. She has had a very thorough outpatient workup. REVIEW OF SYSTEMS: A comprehensive 10 system review of systems is otherwise negative aside from elements mentioned in the history of present illness and medical decision making. PHYSICAL EXAM: HR, BP, O2 Sat, RR. Temp noted General Appearance: Alert, well hydrated, appropriate, and non-toxic appearing. Head: Atraumatic without scalp tenderness or obvious injury Eyes: Pupils equal, round, reactive to light and accommodation, EOMI, no trauma , no injection. Ears: Clear bilaterally, no perforation, normal landmarks Nose: Atraumatic, no rhinorrhea, clear. Throat: There is no erythema or exudates, no lesions, normal tonsils, mucus membranes moist. Neck: Supple, 2+ carotid upstroke, nontender, no lymphadenopathy. Respiratory: No retractions, no distress, no wheezes, and no accessory muscle use. Lungs are clear to auscultation bilaterally. Cardiovascular: Regular rate and rhythm, no murmurs, rubs, or gallops. Bilateral carotid, radial, dorsalis pedis, and posterior tibial pulses intact. Good capillary refill all extremities. Gastrointestinal: Abdomen is soft, diffusely tender without peritoneal signs, non-distended, no masses, no rebound, no guarding, no peritoneal signs. Musculoskeletal: Normal active ROM of all extremities, atraumatic. Neurological: Alert, appropriate, and interactive. The patient has normal DTRs and non-focal cranial nerves, motor, sensory, and cerebellar exam. Skin: No rashes, good turgor, no nodules on palpation. Past medical history: Abdominal migraines Past surgical history: Noncontributory Family history: Noncontributory Social history: Single, employed, does not abuse tobacco drugs or alcohol DIAGNOSTICS/PROCEDURES/CRITICAL CARE TIME: Not indicated this patient has numerous imaging studies for the same process DIFFERENTIAL DIAGNOSIS: The differential diagnosis for the patient's abdominal pain included but was not limited to ovarian cyst, pelvic inflammatory disease, ovarian torsion, urinary tract infection, ectopic , cholecystitis, and appendicitis. MEDICAL DECISION MAKING: This patient has the exact same abdominal migraine that she always has. She intermittently comes to the hospital. Today she is requesting ketamine, anti nausea medicine and some pain medicine if needed. I have had a discussion with her regarding imaging studies that is not indicated she has had numerous imaging studies for the same exact problem she says there is no difference in how she feels today compared other episodes. I will do some screening laboratory studies while in making her pain better. She will receive IV fluids also. 185: Reassesssed patient and discussed normal laboratory findings. She is still having mild pain after a total of 1.5mg IV Dilaudid, 40mg IV Ketamine, 4mg IV Zofran and 1L IV NS. She is comfortable with plan to be discharged home. Return precautions provided; patient is comfortable with this plan. - Data Points Laboratory Results: Laboratory Results 05/05/18 16:00 05/05/18 16:00 05/05/18 05/05/18 05/05/18 16:00 16:00 16:00 WBC 12.79 10^3/uL H 10^3/uL (3.80-9.50) RBC 4.54 10^6/uL 10^6/uL (4.18-5.33) Hgb 13.9 g/dL g/dL (12.6-16.3) Hct 42.1 % % (38.0-47.0) MCV 92.7 fL fL (81.5-99.8) MCH 30.6 pg pg (27.9-34.1) MCHC 33.0 g/dL g/dL (32.4-36.7) RDW 14.6 % % (11.5-15.2) Plt Count 335 10^3/uL 10^3/uL (150-400) MPV 9.9 fL fL (8.7-11.7) Neut % (Auto) 90.3 % H % (39.3-74.2) Lymph % (Auto) 7.7 % L % (15.0-45.0) [place] % (Auto) 1.3 % L % (4.5-13.0) Eos % (Auto) 0.1 % L % (0.6-7.6) Baso % (Auto) 0.2 % L % (0.3-1.7) Nucleat RBC Rel Count 0.0 % % (0.0-0.2) Absolute Neuts (auto) 11.56 10^3/uL H 10^3/uL (1.70-6.50) Absolute Lymphs (auto) 0.98 10^3/uL L 10^3/uL (1.00-3.00) Absolute Monos (auto) 0.16 10^3/uL L 10^3/uL (0.30-0.80) Absolute Eos (auto) 0.01 10^3/uL L 10^3/uL (0.03-0.40) Absolute Basos (auto) 0.03 10^3/uL 10^3/uL (0.02-0.10) Absolute Nucleated RBC 0.00 10^3/uL 10^3/uL (0-0.01) Immature Gran % 0.4 % % (0.0-1.1) Immature Gran # 0.05 10^3/uL 10^3/uL (0.00-0.10) Sodium 139 mEq/L mEq/L (135-145) Potassium 4.2 mEq/L mEq/L (3.5-5.2) Chloride 110 mEq/L mEq/L (97-110) Carbon Dioxide 18 mEq/l L mEq/l (22-31) Anion Gap 11 mEq/L mEq/L (6-14) BUN 12 mg/dL mg/dL (7-23) Creatinine 0.9 mg/dL mg/dL (0.6-1.0) Estimated GFR > 60 Glucose 147 mg/dL H mg/dL (70-100) Calcium 9.2 mg/dL mg/dL (8.5-10.4) Total Bilirubin 0.5 mg/dL mg/dL (0.1-1.4) Conjugated Bilirubin 0.3 mg/dL mg/dL (0.0-0.5) Unconjugated Bilirubin 0.2 mg/dL mg/dL (0.0-1.1) AST 26 IU/L IU/L (14-46) ALT 39 IU/L IU/L (9-52) Alkaline Phosphatase 111 IU/L IU/L (38-126) Total Protein 7.4 g/dL g/dL (6.3-8.2) Albumin 4.3 g/dL g/dL (3.5-5.0) Lipase 47 IU/L IU/L (23-300) Beta HCG, Qual NEGATIVE Medications Given: Discontinued Medications Hydromorphone HCl (Dilaudid) 0.5 mg IVP EDNOW ONE Stop: 05/05/18 15:35 Last Admin: 05/05/18 16:03 Dose: 0.5 mg Hydromorphone HCl (Dilaudid) 1 mg IVP EDNOW ONE Stop: 05/05/18 18:19 Last Admin: 05/05/18 18:30 Dose: 1 mg Sodium Chloride (Ns) 1,000 mls @ 0 mls/hr IV EDNOW ONE; Wide Open PRN Reason: Protocol Stop: 05/05/18 15:37 Last Admin: 05/05/18 16:07 Dose: 1,000 mls Ketamine HCl (Ketamine) 20 mg IV EDNOW ONE Stop: 05/05/18 15:35 Last Admin: 05/05/18 16:06 Dose: 20 mg Ketamine HCl (Ketamine) 20 mg IVP EDNOW ONE Stop: 05/05/18 17:01 Last Admin: 05/05/18 17:08 Dose: 20 mg Ondansetron HCl (Zofran) 4 mg IVP EDNOW ONE Stop: 05/05/18 15:35 Last Admin: 05/05/18 16:01 Dose: 4 mg Departure - Departure Disposition: Home, Routine, Self-Care Clinical Impression: Abdominal pain Qualifiers: Abdominal location: generalized Qualified Code(s): R10.84 - Generalized abdominal pain Condition: Good Instructions: Abdominal Pain (ED) Additional Instructions: 1. Follow-up with your primary doctor within 72 hours. 2. Return to the Emergency Department for fever, chest pain, shortness of breath , increasing pain or other worsening of condition. Referrals: Blanca Santos DO [Primary Care Provider] - As per Instructions
[2018-05-05] MEDS ORDERED: ONDANSETRON 4 MG/2 ML VIAL IVP ONE (15:34)
[2018-05-05] MEDS ORDERED: HYDROmorphONE/DILAUDID 2 MG/ML INJ IVP ONE ×2 (15:34→18:18)
[2018-05-05] MEDS ORDERED: KETAMINE 500 MG/10 ML VIAL IV ONE (15:34)
[2018-05-05] MEDS ORDERED: NS 1,000 ML IV ONE (15:36)
[2018-05-05 16:23] LABS: PLATELET COUNT 335 10^3/uL (150-400)
[2018-05-05] MEDS ORDERED: KETAMINE 500 MG/10 ML VIAL IVP ONE (17:00)
[2018-05-05 19:07] VITALS: BP 127/74
== END 2018-05-05 19:05 | disposition home or self-care (01) ==
DX: R10.84 Generalized abdominal pain (principal); E86.9 Volume depletion, unspecified
CPT/HCPCS: 96374; J1170; J2405